=== PATIENT | male | born 2000 | race Caucasian/White ===

== ENCOUNTER 2023-11-28 21:55 | Emergency (ER) | payer BC, MEDICAID ==
[~2023-11-28] VITALS: Ht 175.3 cm; Wt 77.1 kg
[2023-11-28 22:08] VITALS: BP_SYST 148; PULSE 109; RESP 20; TEMP 100.8; O2SAT 98
[2023-11-29 00:06] LABS: BASOPHILS % (AUTO) 0.2 % (0.0-2.0); EOSINOPHILS # (AUTO) 0.1 K/uL (0.0-0.4); EOSINOPHILS % (AUTO) 0.8 % (0.0-4.0); HEMATOCRIT 45.9 % (36-54); HEMOGLOBIN 15.8 g/dL (14.0-18.0); LYMPHOCYTES # (AUTO) 1.6 K/uL (1.0-5.5); LYMPHOCYTES % (AUTO) 16.9 % (20.5-51.5); MEAN CORPUSCULAR HEMOGLOBIN 30 pg (27-31); MEAN CORPUSCULAR HGB CONC 34 % (32-36); MEAN CORPUSCULAR VOLUME 86 fL (79.0-98.0); MONOCYTES # (AUTO) 0.9 K/uL (0.0-1.0); MONOCYTES % (AUTO) 9.7 % (1.7-9.3); NEUTROPHILS # (AUTO) 6.9 K/uL (1.8-7.7); NEUTROPHILS % (AUTO) 72.4 % (40.0-70.0); PLATELET COUNT (AUTO) 196 K/uL (130-430); RED BLOOD CELL COUNT(AUTO) 5.33 MIL/uL (4.2-6.2); RED CELL DISTRIBUTION WIDTH 13.5 % (9.0-15.0); WHITE BLOOD COUNT (AUTO) 9.5 K/uL (4.8-10.8)
[2023-11-29] MEDS ORDERED: PIPERACILLIN/TAZOBACTAM 4.5 GM/VIAL (ZOSYN) IV ONE (00:25)
[2023-11-29 00:29] LABS: PROTHROMBIN TIME 10.7 SECS (9.5-12.5)
[2023-11-29 00:36] LABS: ALBUMIN 4.1 g/dL (3.4-4.8); CALCIUM 9.3 mg/dL (8.4-11.0); CREATININE 1.12 mg/dL (0.55-1.30); POTASSIUM 3.6 mmol/L (3.5-5.1); TOTAL BILIRUBIN 0.4 mg/dL (0.0-1.0); TOTAL PROTEIN, SERUM 8.4 g/dL (6.4-8.3)
[2023-11-29] MEDS: NACL 0.9% 2,000 ML IV ONE (00:41)
[2023-11-29] MEDS: PIPERACILLIN/TAZO 4.5 GM in NS 100 ML IV ONE (00:42)
[2023-11-29 00:56] LABS: BILIRUBIN,URINE NEGATIVE (NEGATIVE); CLARITY/URINE CLEAR (CLEAR); COLOR,URINE YELLOW (YELLOW); GLUCOSE,URINE NEGATIVE (NEGATIVE); KETONES,URINE NEGATIVE (NEGATIVE); LEUKOCYTE ESTERASE ,URINE NEGATIVE (NEGATIVE); NITRITE, URINE NEGATIVE (NEGATIVE); PROTEIN URINE NEGATIVE (NEGATIVE); UROBILINOGEN,URINE 0.2 (0.2-1.0)
[2023-11-29] MEDS ORDERED: ACETAMINOPHEN 325 MG TABLET ONE (00:57)
[2023-11-29 01:16] LABS: BLOOD, URINE TRACE (NEGATIVE)
[2023-11-29 01:17] LABS: BACTERIA,URINE None Seen /HPF (None Seen); WBC,URINE 0-3 /HPF (0-3)
[2023-11-29] MEDS: ACETAMINOPHEN 325 MG TABLET PO ONE (01:19)
[2023-11-29] MEDS: IBUPROFEN 800 MG TABLET PO ONE (02:26)
[2023-11-29 02:51] LABS: INFLUENZA TYPE A Negative (NEGATIVE); INFLUENZA TYPE B NEGATIVE (NEGATIVE)
[2023-11-29 03:08] VITALS: BP_SYST 113; PULSE 95; RESP 20; TEMP 98.7; O2SAT 95
[2023-11-29] MEDS ORDERED: AUG875 PO (03:17)
== END 2023-11-29 03:40 | disposition home or self-care (01) ==
LOC: SED 21:55
DX: R50.9 Fever, unspecified (principal); Z20.822 Contact with and (suspected) exposure to COVID-19; Z98.890 Other specified postprocedural states; Z79.2 Long term (current) use of antibiotics
CPT/HCPCS: 99284; 71045; 87426; 80053; 81000; 81001; 85025; 85610; 86403; 87040; 36415; 87081; 83605; 87804 ×2; 96365; 96361; 81015; J2543; J7030

== ENCOUNTER 2023-11-30 09:32 | Emergency (ER) | payer BC, MEDICAID ==
[~2023-11-30] VITALS: Ht 175.3 cm; Wt 77.1 kg
[~2023-11-30 09:32] MED LIST: AUG875 PO
[2023-11-30 09:38] VITALS: BP_SYST 122; PULSE 112; RESP 19; TEMP 101.4; O2SAT 100
[2023-11-30] MEDS: IBUPROFEN 600 MG TABLET PO ONE (10:18)
[2023-11-30 10:44] LABS: BASOPHILS % (AUTO) 0.2 % (0.0-2.0); EOSINOPHILS # (AUTO) 0.1 K/uL (0.0-0.4); EOSINOPHILS % (AUTO) 0.6 % (0.0-4.0); HEMATOCRIT 41.5 % (36-54); HEMOGLOBIN 13.7 g/dL (14.0-18.0); LYMPHOCYTES % (AUTO) 8.8 % (20.5-51.5); MEAN CORPUSCULAR HEMOGLOBIN 29 pg (27-31); MEAN CORPUSCULAR HGB CONC 33 % (32-36); MEAN CORPUSCULAR VOLUME 86 fL (79.0-98.0); NEUTROPHILS # (AUTO) 9.1 K/uL (1.8-7.7); NEUTROPHILS % (AUTO) 81.4 % (40.0-70.0); PLATELET COUNT (AUTO) 189 K/uL (130-430); RED BLOOD CELL COUNT(AUTO) 4.82 MIL/uL (4.2-6.2); RED CELL DISTRIBUTION WIDTH 13.6 % (9.0-15.0); WHITE BLOOD COUNT (AUTO) 11.2 K/uL (4.8-10.8)
[2023-11-30 11:46] LABS: INFLUENZA TYPE A Negative (NEGATIVE); INFLUENZA TYPE B NEGATIVE (NEGATIVE)
[2023-11-30] MEDS ORDERED: BENZ1LOZ73 PO (12:31)
[2023-11-30 12:43] VITALS: BP_SYST 112; PULSE 82; RESP 16; O2SAT 99
== END 2023-11-30 12:44 | disposition home or self-care (01) ==
LOC: SED 09:32
DX: R50.9 Fever, unspecified (principal); Z20.822 Contact with and (suspected) exposure to COVID-19; Z79.899 Other long term (current) drug therapy; Z79.2 Long term (current) use of antibiotics
CPT/HCPCS: 36415; 83605; 85025; 99283